=== PATIENT | female | born 1935 | race Caucasian/White ===

== ENCOUNTER 2020-06-26 11:05 | Emergency (ER) | payer BC, MEDICARE, OTHER ==
[~2020-06-26] VITALS: Ht 170.2 cm; Wt 79.0 kg
[2020-06-26] MEDS ORDERED: ONDANSETRON HCL 4MG/2ML INJ IV STA (11:19)
[2020-06-26] MEDS ORDERED: MORPHINE SULFATE 4 MG/ML CPJ (NOT FOR IM USE) IV STA (11:19)
[2020-06-26] MEDS ORDERED: SODIUM CHLORIDE 0.9% 1,000 ML IV ONE (11:30)
[2020-06-26 11:48] LABS: BASOPHILS % 0.5 % (0.0-2.0); EOSINOPHILS % 0.3 % (0.0-5.0); HEMATOCRIT. 45.1 % (36.0-48.0); HEMOGLOBIN. 15.3 g/dL (12.0-16.0); LYMPHOCYTES % 14.4 % (20.0-50.0); MEAN CORPUSCULAR HEMOGLOBIN 28.8 pg (28.0-32.0); MEAN PLATELET VOLUME 7.9 fl (7.4-10.4); MONOCYTES % 2.8 % (2.0-8.0); PLATELET 167 x1000/uL (130-400); RED BLOOD CELL COUNT 5.31 mill/uL (4.2-5.4)
[2020-06-26 11:53] LABS: CHLORIDE 102 mEq/L (98-107)
[2020-06-26 11:55] LABS: INR 1.1; PROTHROMBIN TIME 11.6 sec (9.6-11.0)
[2020-06-26] MEDS ORDERED: ASPIRIN 325MG EC TABLET PO ONE (14:00)
[2020-06-26 15:00] VITALS: BP 133/54
== END 2020-06-26 15:33 | disposition short-term general hospital (02) ==
LOC: ER 11:14 → CANBEDREQ 15:16 → ER 15:33
DX: R07.9 Chest pain, unspecified (principal); I20.0 Unstable angina; I10 Essential (primary) hypertension; R10.9 Unspecified abdominal pain; E13.65 Other specified diabetes mellitus with hyperglycemia; Z85.9 Personal history of malignant neoplasm, unspecified; Z88.2 Allergy status to sulfonamides; Z88.6 Allergy status to analgesic agent
CPT/HCPCS: 36415; 71045; 74176; 80053; 83690; 84484; 85025; 85610; 93005; 96361; 96374; 96375; 99285; J2270; J2405; J7030